=== PATIENT | female | born 2000 | race Caucasian/White ===

== ENCOUNTER 2023-02-12 21:35 | Emergency (ER) | payer OTHER, SELFPAY ==
--- NOTE | ~2023-02-12 | CT_ITS ---
EXAMINATION: CT brain wo con DATE: 02/13/2023 02:29 INDICATION: Head injury TECHNIQUE: Computed tomography (CT) of the head was performed without intravenous contrast. Sagittal and coronal reconstructions were performed. The mA was adjusted according to patient size. Iterative reconstruction technique was employed. The dose-length product was 605.33 mGy-cm. COMPARISON: None FINDINGS: No fracture. No acute intracranial hemorrhage, acute infarction or abnormal extra axial fluid collect ion. Ventricles are normal and symmetric. No mass/mass effect. The orbits, paranasal sinuses and mast oid air cells are normal. IMPRESSION: 1. Normal head CT. No fracture or acute intracranial process. Reviewed, dictated and finalized at location A.
[2023-02-12 21:38] VITALS: BP 138/84; PULSE 110; RESP 18; TEMP 36.6; O2SAT 99
[2023-02-13 02:07] VITALS: BP 144/109; PULSE 102; RESP 16; TEMP 36.6; O2SAT 98
[2023-02-13 02:08] VITALS: O2SAT 100
[2023-02-13 03:00] VITALS: BP 129/85; PULSE 101; RESP 19; O2SAT 98
--- NOTE | 2023-02-13 03:46 | ED.GENADULT ---
HPI - General Adult General Chief complaint: Head Injury Stated complaint: fell yesterday, headache and blurry vision Time Seen by Provider: 02/13/23 02:04 History of Present Illness HPI narrative: 22-year-old female presented the emergency department for evaluation after having a syncopal episode in the shower yesterday. Patient reports that she often does have syncopal episodes. Patient reports that she fell in the shower and did hit her head. Patient states he does have history of hypoglycemia. Patient states that she does have a headache at this time. Patient denies any other pain or injury. After the incident patient was able to work all day but then started developing a headache so after work she presented to the ED for evaluation. Related Data Home Medications Medication Instructions Recorded Confirmed desvenlafaxine succinate 100 mg 75 mg PO DAILY 05/16/19 tablet,extended release 24 hr (Pristiq) oxcarbazepine 300 mg tablet 300 mg PO BID 05/16/19 (Trileptal) metoclopramide HCl 10 mg tablet 10 mg PO 10/22/22 ziprasidone HCl 80 mg capsule 80 mg PO ONCE 10/22/22 levonorgestrel 21 mcg/24 hours (8 1 device intrauterine ONCE 12/15/22 yrs) 52 mg intrauterine device (Mirena) levothyroxine 25 mcg capsule 100 mcg PO DAILY 12/15/22 Allergies Allergy/AdvReac Type Severity Reaction Status Date / Time No Known Allergies Allergy Verified 12/15/22 14:21 Review of Systems Review of Systems: All systems reviewed & are unremarkable except as noted in HPI and below PMFSH Past Medical History Medical History Anxiety Bipolar disorder Encounter for removal and reinsertion of intrauterine contraceptive device Psychosis Surgical History Surgical History H/O gynecological procedure IUD insertiona Short frenulum of tongue Family History Family History Mother Thyroid cancer Social History Social History Smoking status: Never smoker Second hand tobacco smoke exposure: No Alcohol intake: never Substance use: never Substance use type: does not use Living arrangements: with family Occupation/Education: occupation Gender identity (if verbalized by the patient): Female Sexual Orientation (if Verbalized by the Patient): pansexual Exam Narrative: APPEARANCE: Well appearing, no pain, no distress, well-nourished. HEAD: normocephalic, atraumatic. EYES: PERRLA/EOMI, conjunctivae clear. NOSE: Normal no drainage EARS:TMS clear with good light reflex. THROAT: Pharynx clear, no exudate. NECK: Supple. No adenopathy, no masses. RESPIRATORY: Airway patent, respirations nonlabored. Clear to auscultation bilaterally, no rales, rhonchi, wheezing. CARDIOVASCULAR: Regular rate and rhythm without murmurs rubs or gallops. ABDOMINAL: Soft, nontender, nondistended, normal bowel sounds MUSCULOSKELETAL: Moves all extremities. Strength/ROM intact, No edema, No calf tenderness. NEURO: Alert. Cranial nerves II through XII intact. Grossly intact SKIN: Warm, dry. Normal Color Course Course Emergency Course: 22-year-old female presented ED for evaluation for headache after having a near syncopal episode in the shower. Head CT was negative. Patient was updated results of her work-up. Patient was encouraged of close follow-up with her primary care physician. All questions and concerns were Vital Signs Vital signs: Vital Signs Temperature 97.9 F 02/12/23 21:38 Pulse Rate 110 H 02/12/23 21:38 Respiratory Rate 18 02/12/23 21:38 Blood Pressure 138/84 02/12/23 21:38 Pulse Oximetry 99 02/12/23 21:38 Oxygen Delivery Room Air 02/12/23 21:38 Temperature 97.8 F 02/13/23 05:56 Pulse Rate 100 02/13/23 05:56 Respiratory Rate 16 02/13/23 05:56 Blood Pressure 114
[2023-02-13 03:52] VITALS: BP 123/79; PULSE 89; RESP 15; O2SAT 98
[2023-02-13 04:55] VITALS: BP 140/87; PULSE 102; RESP 16; O2SAT 100
[2023-02-13 05:56] VITALS: BP 114/75; PULSE 100; RESP 16; TEMP 36.6; O2SAT 100
== END 2023-02-13 05:57 | disposition home or self-care (01) ==
PROVIDERS: Emergency Provider Emergency Medicine; PCP Family Medicine
DX: S09.90XA Unspecified injury of head, initial encounter (principal); Z97.5 Presence of (intrauterine) contraceptive device; W18.2XXA Fall in (into) shower or empty bathtub, initial encounter; Y93.E1 Activity, personal bathing and showering
CPT/HCPCS: 70450; 99284

== ENCOUNTER 2023-07-06 15:07 | Emergency (ER) | payer OTHER, SELFPAY ==
--- NOTE | ~2023-07-06 | XR_ITS ---
XR chest 2V DATE: 07/06/2023 16:10 INDICATION: Chest pain, shortness of breath TECHNIQUE: PA and lateral views COMPARISON: None FINDINGS: Normal heart size. No hilar or mediastinal enlargement. No pulmonary infiltrate or consolid ation, pleural effusion or pulmonary vascular congestion or pneumothorax is detected. Included skelet al structures are unremarkable. IMPRESSION: No active cardiopulmonary disease Reviewed, dictated and finalized at location L. LE WMS CONSULTANT
[2023-07-06 15:09] VITALS: BP 139/104; PULSE 87; RESP 18; TEMP 36.7; O2SAT 98
--- NOTE | 2023-07-06 15:16 | ECG_ITS ---
Measurements Intervals [place] Rate: 92 P: 27 CO: 156 QRS: 19 QRSD: 82 T: 3 QT: 335 QTc: 415 Interpretive Statements SINUS RHYTHM NORMAL ECG NO PREVIOUS ECG AVAILABLE FOR COMPARISON Electronically Signed On 07-06-2023 16:33:02 DIRECTOR NETWORK DEVELOPMENT by Harley Lechuga D.O.
[2023-07-06 15:36] LABS: Basophils Percent Auto 0.3 % (0.2-1.2); Eosinophils Absolute Auto 0.1 K/mm3 (0-0.3); Eosinophils Percent Auto 1.1 % (0-4.4); Hematocrit 40.6 % (37.0-47.0); Immature Granulocyte Absolute 0.05 K/mm3 (0.00-0.031); Immature Granulocyte Percent A 0.6 % (0-0.5); Lymphocytes Absolute Auto 2.59 K/mm3 (0.9-3.2); Lymphocytes Percent Auto 32.5 % (18.3-44.2); Mean Corpuscular Hemoglobin 26.7 pg (26-34); Mean Corpuscular Volume 83.5 fl (80-100); Monocytes Absolute Auto 0.5 K/mm3 (0.1-0.6); Monocytes Percent Auto 6.5 % (2.6-8.5); Neutrophils Absolute Auto 4.7 K/mm3 (1.3-6.7); Platelet Count Result 300 k/mm3 (150-375); Red Blood Count 4.86 M/mm3 (4.2-5.4); Red Cell Distribution Width 13.1 % (11.5-14.5)
[2023-07-06 15:46] LABS: Alanine Aminotransferase 36 U/L (6-35); Albumin Level 3.9 g/dL (3.5-5.1); Alkaline Phosphatase 77 U/L (38-126); Anion Gap 9 mmol/L (8-16); Aspartate Amino Transferase 28 U/L (14-36); Bilirubin,Total 0.4 mg/dL (0.2-1.3); Blood Urea Nitrogen 13 mg/dL (7-17); Calcium 9.1 mg/dL (8.4-10.2); Carbon Dioxide 22 mmol/L (22-30); Chloride 110 mmol/L (98-107); Estimated CRCL calculation 158 ml/min; Estimated Glomerular Filt Rate > 60; Glucose 84 mg/dL (65-110); Lipase 78 U/L (23-300); Potassium 4.2 mmol/L (3.4-5.0); Sodium 141 mmol/L (137-145)
[2023-07-06 15:49] LABS: Prothrombin Time 13.3 Seconds (11.1-14.7)
[2023-07-06 15:58] LABS: Troponin I < 0.012 ng/mL (0.000-0.034)
--- NOTE | 2023-07-06 17:31 | ED.CHESTPAIN ---
HPI - Chest Pain General Chief Complaint: Chest Pain Stated Complaint: intermittent chest discomfort Time Seen by Provider: 07/06/23 17:30 History of Present Illness HPI narrative: Patient is a 22-year-old female who presents to the emergency department this afternoon complaining of chest pain that started while she was at work. Patient states that the chest pain is substernal and radiates across the rib cage. She admits to 1 similar episode in the where she presented to an emergency department and was evaluated and discharged home with outpatient follow-up. Patient states that she was not provided with a Cardiology referral as her insurance requires her to have a referral from her primary care physician and she never followed up on that. Patient denies any additional symptoms including shortness of breath, nausea, vomiting, abdominal pain, dysuria, hematuria, constipation, diarrhea, melena, hematochezia, fevers or chills. Patient also denies any headaches, dizziness, lightheadedness, blurry visions, focal weakness, numbness and or tingling. There are no other modifying, alleviating, or precipitating factors at this time. Related Data Home Medications Medication Instructions Recorded Confirmed desvenlafaxine succinate 100 mg 75 mg PO DAILY 05/16/19 tablet,extended release 24 hr (Pristiq) oxcarbazepine 300 mg tablet 300 mg PO BID 05/16/19 (Trileptal) metoclopramide HCl 10 mg tablet 10 mg PO 10/22/22 ziprasidone HCl 80 mg capsule 80 mg PO ONCE 10/22/22 levonorgestrel 21 mcg/24 hours (8 1 device intrauterine ONCE 12/15/22 yrs) 52 mg intrauterine device (Mirena) levothyroxine 25 mcg capsule 100 mcg PO DAILY 12/15/22 Allergies Allergy/AdvReac Type Severity Reaction Status Date / Time No Known Allergies Allergy Verified 07/06/23 15:14 Review of Systems Review of Systems: All systems are reviewed and are negative unless stated otherwise in the HPI. PMFSH Past Medical History Medical History Anxiety Bipolar disorder Encounter for removal and reinsertion of intrauterine contraceptive device Psychosis Surgical History Surgical History H/O gynecological procedure IUD insertiona Short frenulum of tongue Family History Family History Mother Thyroid cancer Social History Social History Smoking status: Never smoker Second hand tobacco smoke exposure: No Alcohol intake: never Substance use: never Substance use type: does not use Living arrangements: with family Occupation/Education: occupation Gender identity (if verbalized by the patient): Female Sexual Orientation (if Verbalized by the Patient): pansexual Exam Narrative: General: Alert, awake, afebrile, in no acute distress. HEENT: PERRL, no rhinorrhea, no post nasal drip, oropharynx clear. Neck: Trachea midline, no JVD, no lymphadenopathy. Cardiovascular: Regular rate and rhythm, no murmurs, rubs or gallops, no peripheral edema. Respiratory: Clear to auscultation bilaterally, no tachypnea, no wheezing, no rhonchi, no rubs, no respiratory distress. Abdomen: Soft, nontender, nondistended, no rebound, no guarding, no peritoneal signs. Musculoskeletal: No joint swelling or deformity, normal muscle tone. Skin: No rashes or petechia, no signs of infection. Psychiatric: Alert and oriented, normal behavior and judgment for situation. Neurological: Alert and oriented to person, place, and time. Follows all commands. No focal deficits, speech is clear and fluent. Course Vital Signs Vital signs: Vital Signs Temperature 98.1 F 07/06/23 15:09 Pulse Rate 87 07/06/23 15:09 Respiratory Rate 18 07/06/23 15:09 Blood Pressure 139/104 H 07/06/23 15:09 Pulse Oximetry 98 07/06/23 15:09 Oxygen Deli
--- NOTE | 2023-07-06 18:11 | ECG_ITS ---
Measurements Intervals [place] Rate: 89 P: 11 MO: 155 QRS: 42 QRSD: 82 T: 5 QT: 352 QTc: 430 Interpretive Statements SINUS RHYTHM BORDERLINE ST-T WAVE ABNORMALITY- INFERIOR LEADS BASELINE ARTIFACT- II, III, AVR, AVL, AVF BORDERLINE ECG COMPARED TO ECG 07/06/2023 15:22:01 NO SIGNIFICANT CHANGES Electronically Signed On 07-06-2023 20:40:30 OUTPATIENT SCHEDULER by Harley Lechuga D.O.
[2023-07-06 18:34] LABS: Troponin I < 0.012 ng/mL (0.000-0.034)
[2023-07-06 18:51] VITALS: BP 142/98; PULSE 96; RESP 22; TEMP 36.4; O2SAT 97
[2023-07-06 18:52] LABS: Glucose Point of Care 84 mg/dl (65-105)
== END 2023-07-06 18:52 | disposition home or self-care (01) ==
PROVIDERS: Emergency Medicine; Emergency Provider Emergency Medicine; PCP Family Medicine
DX: R07.9 Chest pain, unspecified (principal)
CPT/HCPCS: 36415; 71046; 80053; 82948; 83690; 84484; 85025; 85610; 85730; 93005; 99284

== ENCOUNTER 2024-12-05 15:44 | Emergency (ER) | payer OTHER, SELFPAY ==
--- NOTE | ~2024-12-05 | CT_ITS ---
CT brain wo con Ordering provider: Faith Montaño PA-C History: 23 years Female with . headache, hypertension . Comparison: None. Technique: CT of the head without contrast. Radiation reduction technique utilized.The dose-length product was 605.33 mGy-cm. FINDINGS: BRAIN PARENCHYMA AND CSF SPACES: No midline shift, mass effect or hemorrhage. The brain parenchyma a nd CSF spaces are otherwise normal. VISUALIZED PARANASAL SINUSES: Well aerated. MASTOIDS: Well aerated. BONES: The bones appear intact. SOFT TISSUES: Visualized nasopharynx is normal. Superficial soft tissues are normal. IMPRESSION: No acute intracranial findings. Reviewed, dictated and finalized at location A.
[2024-12-05 15:47] VITALS: BP 168/92; PULSE 86; RESP 16; TEMP 36.6; O2SAT 99
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
--- NOTE | 2024-12-05 17:13 | ED.HA ---
HPI - Headache General Chief Complaint: Headache Stated Complaint: nosebleed, rash Time Seen by Provider: 12/05/24 17:07 Source: patient Mode of arrival: ambulatory Limitations: no limitations History of Present Illness HPI Narrative: This is a 23-year-old female that presents to the emergency department for headache. Reports last night and this morning she had some leads, which are unusual for her. This morning she also woke up with a headache. Reports associated nausea vomiting. She does endorse history of migraines. She has not taken any medication for her headache today. She also noted a rash on her face. Denies fevers, vision changes, numbness, weakness. Related Data Home Medications ?Medication ?Instructions ?Recorded ?Confirmed ?Last Taken ?Type ziprasidone HCl 80 mg capsule 80 mg PO ONCE 10/22/22 01/25/24 Unknown History levonorgestrel (Mirena) 1 device intrauterine ONCE 12/15/22 01/25/24 Unknown History Allergies Allergy/AdvReac Type Severity Reaction Status Date / Time No Known Allergies Allergy Verified 01/25/24 15:20 Review of Systems Review of Systems: CONSTITUTIONAL: Denies fever EYES: Denies visual changes GASTROINTESTINAL: Reports nausea, vomiting SKIN: Reports rash All systems reviewed & are unremarkable except as noted in HPI and below PMFSH Past Medical History Medical History Anxiety Bipolar disorder Encounter for removal and reinsertion of intrauterine contraceptive device Psychosis Surgical History Surgical History H/O gynecological procedure IUD insertiona Short frenulum of tongue Family History Family History Mother Thyroid cancer Social History Social History Smoking status: Never smoker Second hand tobacco smoke exposure: No Alcohol intake: never Substance use: never Substance use type: does not use Living arrangements: with family Occupation/Education: occupation Gender identity (if verbalized by the patient): Female Sexual Orientation (if Verbalized by the Patient): pansexual Exam Narrative: GENERAL: Well-appearing, well-nourished, and in no acute distress. HEAD: Normocephalic, atraumatic. EYES: PERRLA and EOMI. ENT: Nares clear, no rhinorrhea or epistaxis. Mucous membranes moist. Oropharynx without tonsillar hypertrophy exudate or other lesions. Bilateral TMs pearly gallegos non-bulging NECK: Supple. No adenopathy or masses. Normal range of motion CHEST: Clear to auscultation. No respiratory distress. No wheezes rales or rhonchi HEART: Regular rate and rhythm. No murmur heard. Normal peripheral pulses. ABDOMEN: Soft, nontender, nondistended, normal active bowel sounds. EXTREMITIES: Normal range of motion. No edema. Strength equal in bilateral upper and lower extremities (5/5) SKIN: Warm, dry. Petechial rash on the face NEURO: No focal deficits. Alert and oriented x3. Cranial nerves 2-12 grossly intact. Normal gait PSYCH: Normal mood and affect Course Course Emergency Course: patient updated on her workup. Reports improvement with migraine cocktail. Resting comfortably Vital Signs Vital signs: Vital Signs Temperature 97.9 F 12/05/24 15:47 Pulse Rate 86 12/05/24 15:47 Respiratory Rate 16 12/05/24 15:47 Blood Pressure 168/92 H 12/05/24 15:47 Pulse Oximetry 99 12/05/24 15:47 Oxygen Delivery Room Air 12/05/24 15:47 Temperature 97.9 F 12/05/24 15:47 Pulse Rate 86 12/05/24 15:47 Respiratory Rate 16 12/05/24 15:47 Blood Pressure 168/92 H 12/05/24 15:47 Pulse Oximetry 99 12/05/24 15:47 Oxygen Delivery Room Air 12/05/24 15:47 MDM - Headache MDM Narrative Medical decision making narrative: Patient presents to the ER for nosebleeds ongoing intermittently since last night. Reporting a headache today, history of migraines. Also reporting a petechial rash on her face. Patient is afebrile and nontoxic appearing. She is neurologically intact. Blood pressure elevated upon arrival, this normalized with management of her pain. CBC and metabolic panel without concerning findings. Urine without evidence of infection. test is negative. TSH is normal. CT brain without acute findings. Patient updated on her workup. Reports improvement with migraine cocktail. Resting comfortably. Instructed to have close follow-up with primary provider for further evaluation. She was given warnings to return to the ER Differential Diagnosis Differential diagnosis: Likely migraine, tension headache, subarachnoid hemorrhage, sinusitis and other (nosebleed, viral syndrome, thrombocytopenia) Lab Data Attestation: I reviewed the patient's lab results. 12/05/24 17:24 12/05/24 17:24 Labs: Lab Results 12/05/24 12/05/24 12/05/24 Range/Units 17:24 17:49 17:52 WBC 8.0 (4.5-10.0) K/mm3 RBC 5.11 (4.2-5.4) M/mm3 Hgb 13.8 (12.0-15.0) g/dL Hct 42.0 (37.0-47.0) % MCV 82.2 (80-100) fl MCH 27.0 (26-34) pg MCHC 32.9 (32-36) g/dl RDW 13.8 (11.5-14.5) % Plt Count 274 (150-375) k/mm3 MPV 10.8 H (7.4-10.4) fl Immature Gran % (Auto) 0.4 (0-0.5) % Neut % (Auto) 67.3 (45.5-73.1) % Lymph % (Auto) 25.8 (18.3-44.2) % Antelope % (Auto) 5.3 (2.6-8.5) % Eos % (Auto) 0.8 (0-4.4) % Baso % (Auto) 0.4 (0.2-1.2) % Lymph # (Auto) 2.05 (0.9-3.2) K/mm3 Antelope # (Auto) 0.4 (0.1-0.6) K/mm3 Eos # (Auto) 0.1 (0-0.3) K/mm3 Baso # (Auto) 0.0 (0.0-0.1) K/mm3 Abs Immat Gran (auto) 0.03 (0.00-0.031) K/mm3 Absolute Neuts (auto) 5.4 (1.3-6.7) K/mm3 Absolute Nucleated RBC 0.000 (0.0-0.012) K/mm3 Nucleated RBC % 0.0 (0.0-0.2) % PT 13.9 (11.1-14.7) Seconds INR 1.1 APTT 34.5 (22.3-36.8) Seconds Sodium 141 (137-145) mmol/L Potassium 4.5 (3.4-5.0) mmol/L Chloride 109 H (98-107) mmol/L Carbon Dioxide 24 (22-30) mmol/L Anion Gap 8 (4-12) mmol/L BUN 14 (7-17) mg/dL Creatinine 0.72 (0.7-1.0) mg/dL Estim Creat Clear Calc 149 ml/min Estimated GFR > 60 (59 - ) Glucose 102 (65-110) mg/dL Calcium 9.4 (8.4-10.2) mg/dL Total Bilirubin 0.5 (0.2-1.3) mg/dL AST 27 (14-36) U/L ALT 31 (6-35) U/L Alkaline Phosphatase 82 (38-126) U/L Total Protein 8.1 (6.3-8.2) g/dL Albumin 4.1 (3.5-5.1) g/dL TSH (Reflex) 3.700 (0.465-4.68) uIU/mL Urine Color Yellow (Yellow) Urine Appearance Clear (Clear) Urine pH 5.5 (5.0-9.0) Ur Specific [place] 1.022 (1.001-1.035) Urine Protein Negative (Negative) mg/dL Urine Glucose (UA) Negative (Negative) mg/dL Urine Ketones Negative (Negative) mg/dL Ur Blood (Man) 1+ H (Negative) Urine Nitrate Negative (Negative) Urine Bilirubin Negative (Negative) Urine Urobilinogen 0.2 (<2.0) mg/dL Leukocyte Esterase Rfl Trace H (Negative) MONIKA/UL Urine RBC 0-2 (0-2) /hpf Urine WBC 0-5 (0-3) /hpf Ur Squamous Epith Cells Few (Few) /hpf Urine Bacteria 2+ H /hpf Urine Casts 0-2 POC Urine HCG, Qual (Negative) 12/05/24 Range/Units 17:54 WBC (4.5-10.0) K/mm3 RBC (4.2-5.4) M/mm3 Hgb (12.0-15.0) g/dL Hct (37.0-47.0) % MCV (80-100) fl MCH (26-34) pg MCHC (32-36) g/dl RDW (11.5-14.5) % Plt Count (150-375) k/mm3 MPV (7.4-10.4) fl Immature Gran % (Auto) (0-0.5) % Neut % (Auto) (45.5-73.1) % Lymph % (Auto) (18.3-44.2) % Antelope % (Auto) (2.6-8.5) % Eos % (Auto) (0-4.4) % Baso % (Auto) (0.2-1.2) % Lymph # (Auto) (0.9-3.2) K/mm3 Antelope # (Auto) (0.1-0.6) K/mm3 Eos # (Auto) (0-0.3) K/mm3 Baso # (Auto) (0.0-0.1) K/mm3 Abs Immat Gran (auto) (0.00-0.031) K/mm3 Absolute Neuts (auto) (1.3-6.7) K/mm3 Absolute Nucleated RBC (0.0-0.012) K/mm3 Nucleated RBC % (0.0-0.2) % PT (11.1-14.7) Seconds INR APTT (22.3-36.8) Seconds Sodium (137-145) mmol/L Potassium (3.4-5.0) mmol/L Chloride (98-107) mmol/L Carbon Dioxide (22-30) mmol/L Anion Gap (4-12) mmol/L BUN (7-17) mg/dL Creatinine (0.7-1.0) mg/dL Estim Creat Clear Calc ml/min Estimated GFR (59 - ) Glucose (65-110) mg/dL Calcium (8.4-10.2) mg/dL Total Bilirubin (0.2-1.3) mg/dL AST (14-36) U/L ALT (6-35) U/L Alkaline Phosphatase (38-126) U/L Total Protein (6.3-8.2) g/dL Albumin (3.5-5.1) g/dL TSH (Reflex) (0.465-4.68) uIU/mL Urine Color (Yellow) Urine Appearance (Clear) Urine pH (5.0-9.0) Ur Specific [place] (1.001-1.035) Urine Protein (Negative) mg/dL Urine Glucose (UA) (Negative) mg/dL Urine Ketones (Negative) mg/dL Ur Blood (Man) (Negative) Urine Nitrate (Negative) Urine Bilirubin (Negative) Urine Urobilinogen (<2.0) mg/dL Leukocyte Esterase Rfl (Negative) MONIKA/UL Urine RBC (0-2) /hpf Urine WBC (0-3) /hpf Ur Squamous Epith Cells (Few) /hpf Urine Bacteria /hpf Urine Casts POC Urine HCG, Qual Negative (Negative) Imaging Data Radiologist's impression: ITS Impressions Head CT 12/05/24 17:23 IMPRESSION: No acute intracranial findings. Critical Care Time Critical Care Time Critical Care Time: No Discharge Plan Discharge Clinical Impression: Petechial rash, Epistaxis Headache Qualifiers: Headache type: unspecified Headache chronicity pattern: acute headache Intractability: not intractable Qualified Code(s): R51.9 - Headache, unspecified Patient Disposition: Home Condition: Improved Instructions: Nosebleed (ED), Acute Headache (ED), Acute Rash (ED) Additional Instructions: Return to the emergency department if you experience fever, chest pain, shortness of breath, abdominal pain with nausea and vomiting, weakness, numbness, or any other symptoms that are concerning to you. Follow up with primary care doctor Patient Language: Surinamese Prescriptions: No Action ziprasidone HCl 80 mg capsule 80 mg PO ONCE Rx Instructions: give with food (meal/snack) metronidazole 500 mg tablet 500 mg PO Q12H Qty: 14 0RF Mirena 21 mcg/24 hours (8 yrs) 52 mg intrauterine device 1 device intrauterine ONCE Rx Instructions: as a single dose Follow-up/Referrals: Yvon Nevarez MD [Physician] - UNKNOWN,DOCTOR [Primary Care Provider] -
[2024-12-05 17:30] LABS: Basophils Percent Auto 0.4 % (0.2-1.2); Eosinophils Absolute Auto 0.1 K/mm3 (0-0.3); Eosinophils Percent Auto 0.8 % (0-4.4); Hemoglobin 13.8 g/dL (12.0-15.0); Immature Granulocyte Absolute 0.03 K/mm3 (0.00-0.031); Immature Granulocyte Percent A 0.4 % (0-0.5); Lymphocytes Absolute Auto 2.05 K/mm3 (0.9-3.2); Lymphocytes Percent Auto 25.8 % (18.3-44.2); Mean Corpuscular HGB Conc 32.9 g/dl (32-36); Mean Corpuscular Volume 82.2 fl (80-100); Mean Platelet Volume 10.8 fl (7.4-10.4); Monocytes Absolute Auto 0.4 K/mm3 (0.1-0.6); Monocytes Percent Auto 5.3 % (2.6-8.5); Neutrophils Absolute Auto 5.4 K/mm3 (1.3-6.7); Neutrophils Percent Auto 67.3 % (45.5-73.1); Platelet Count Result 274 k/mm3 (150-375); Red Blood Count 5.11 M/mm3 (4.2-5.4); Red Cell Distribution Width 13.8 % (11.5-14.5)
[2024-12-05 17:40] LABS: Alanine Aminotransferase 31 U/L (6-35); Albumin Level 4.1 g/dL (3.5-5.1); Alkaline Phosphatase 82 U/L (38-126); Anion Gap 8 mmol/L (4-12); Aspartate Amino Transferase 27 U/L (14-36); Bilirubin,Total 0.5 mg/dL (0.2-1.3); Blood Urea Nitrogen 14 mg/dL (7-17); Calcium 9.4 mg/dL (8.4-10.2); Carbon Dioxide 24 mmol/L (22-30); Chloride 109 mmol/L (98-107); Estimated CRCL calculation 149 ml/min; Estimated Glomerular Filt Rate > 60; Glucose 102 mg/dL (65-110); Potassium 4.5 mmol/L (3.4-5.0); Sodium 141 mmol/L (137-145); Total Protein 8.1 g/dL (6.3-8.2)
--- OUTSIDE RECORDS SUMMARY | 2024-12-05 17:42 | XMS_ITS | Clinical Summary ---
Author Organization [facility] Address [address] [place] [address] Care Team Providers Care Appliances Sample Maker Name Role Phone Unavailable Primary Care Provider Unavailabl e Source Comments [facility],non-owned Affiliates and Associated Physician Practices is amultiple site organization consisting of ambulatory clinics and hospital sitesin [place], [place], [place] and [place]. This disclosure is being madepursuant to the Care Everywhere program and may not contain all information available regarding this patient. 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
--- OUTSIDE RECORDS SUMMARY | 2024-12-05 17:42 | XMS_ITS | Referral Summary ---
Author Organization [address] Address [address] [place] [phone] Care Team Providers Care Slackman Name Role Phone Jordan Conteh MD Primary Care Provider Sd Ledbetter HOUSEHOLD REFRIGERATOR MECHANIC Unavailable [phone] Allergies No known active allergies Medications ziprasidone (GEODON) 80 mg capsule TAKE 1 CAPSULE BY MOUTH IN THE EVENING 2 Active lamoTRIgine (LaMICtal) 25 mg tablet 2 Active MELATONIN ORAL Take by mouth A ctive metoclopramide (Reglan) 10 mg tabletIndication s:Chronic migraine without aura without status migrainosus, not intractable Take 1 tablet (10 mg total) by mouth 3 (three) times a day as needed (nausea) 30 tablet 2 Active Additional Information Patient not taking.Reported on 03/22/2023 topiramate (TOPAMAX) 25 mg tabletIndication s:Chronic migraine without aura without status migrainosus, not intractable Take 2 tablets (50 mg total) by mouth 2 (two) times a day 180 tablet 4 2 Active Additional Information Patient not taking.Reported on 03/22/2023 levothyroxine (SYNTHROID) 125 mcg tabletIndication s: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 No discrete solid nodules noted Palpitations 03/19/2023 Overview (03/19/2023): EKG unremarkable save for tachycardia Assessment & Plan (03/19/2023 11:05 PM CDT): EKG doesn't show any arrhythmia or extra beats, but it is rapid. If the thyroid is elevated, it could be causative. 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 If one or more pills are missing in a week, they can be taken all together at once, making sure at the end of the week, 7 tabs have been taken. Chronic migraine without aur a without status migrainosus, not intractable 05/13/2022 Encounter for general adult medical examination with abnormal findings 01/01/2022 Assessment & Plan (01/03/2022 7:56 PM CDT): A(n) initial well visit to establish care has been performed today. Luzma Billings is up to date on screening tests. She is in need of None- no screening indicated at this time. She is not up to date on needed preventative vaccinations; She is in need of Tdap/Td, HPV and Varicella. Will await shot record Bipolar depression 01/01/2022 Immunizations Immunization Administration Dates Next Due DTaP 05/02/2002,03/29/2002 Hep B / HiB 05/02/2002,03/29/2002 IPV 05/02/2002,03/29/2002 Influenza, Quadrivalent, Spl it, Preservative Free, Intramuscular 04/06/2019 Influenza, Trivalent, Preser vative Free, Intramuscular 04/01/2016 Influenza, Unspecified 06/21/2022(Deferr ed: Patient Refused),04/07/2022(Deferred: Patient Refused),06/21/2021(Deferred: Patient Refused) Varicella 03/20/2019 Social History Tobacco Use Types Packs/Day Years Used Date Smoking Tobacco: Never AUDIT-C Answer Date Recorded Q1: How often do you have a drink containing alcohol? Monthly or less 03/17/2023 Q2: How many drinks containi ng alcohol do you have on a typical day when you are drinking? Patient does not drink Q3: How often do you have si x or more drinks on one occasion? Never 03/17/2023 PHQ-2 Answer Date Recorded PHQ-2 Total Score (If total score is 3 or more points, staff should administer the PHQ-9) 0 03/17/2023 Personal Safety Answer Date Recorded Getting School Help Needed Not on file 06/07 Comments No Sex and Gender Information Value Date Recorded Sex Assigned at Not on file Legal Sex Female 11:40 AM CDT Gender Identity Not on file Sexual Orientation Not on file Last Filed Vital Signs Vital Sign Reading Time Taken Comments Blood Pressure 126/70 03/22/2023 10:39 AM CDT Pulse 110 03/22/2023 10:39 AM CDT Temperature 36.1 C (97 F) 03/17/2023 1:38 PM CDT Respiratory Rate 18 03/22/2023 10:3 9 AM CDT Oxygen Saturation 99% 03/17/2023 1:38 PM CDT Inhaled Oxygen Concentration - - Weight 137.9 kg (304 lb 1.6 oz) 023 10:39 AM CDT Height 167.6 cm (5' 5.98) 03/22/2023 1 0:39 AM CDT Body Mass Index 49.11 03/22/2023 10:39 AM CDT Plan of Treatment Not on file Insurance [facility] Care Teams Slackman Relationship Specialty Start Date End Date Jordan Conteh MD [address] [place] [address] PCP - General Family Medicine 12/10/21 [place] [id number] [facility] [address] [place] [address] Nurse Practitioner Behavioral Health 01/01/22
--- OUTSIDE RECORDS SUMMARY | 2024-12-05 17:42 | XMS_ITS | Clinical Summary ---
Author Organization [facility] Address [address] [place] [id number] Care Team Providers Care Clean Room Technician Name Role Phone Renay Larkin VTC TECHNICIAN Primary Care Provider [phone] Allergies No known active allergies Medications lurasidone (LATUDA) 40 MG Tab tabletIndication s:Bipolar depression ([facility]) Take 1 tablet (40 mg total) by mouth daily. 30 tablet 1 06/22/2024 Active levothyroxine (SYNTHROID) 150 MCG tabletIndication s:Hypothyroidism due to Nik thyroiditis Take 1 tablet (150 mcg total) by mouth every morning. 30 tablet 1 06/23/2024 Active vitamin D2, ergocalciferol, (DRISDOL) 1.25 mg capsuleIndicatio ns:Vitamin D deficiency Take 1 capsule (50,000 Units total) by mouth every 7 days. 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 ([facility]) 05/25/2024 Palpitations 05/25/2024 Other form of dyspnea 05/25/2024 Vitamin D deficiency 05/25/2024 IUD (intrauterine device) in place 05/25/2024 Chronic pain of right knee 05/25/2024 Class 3 severe obesity witho ut serious comorbidity with body mass index (BMI) of 45.0 to 49.9 in adult, unspecified obesity type 05/25/2024 Encounters Date Type Department Care Team Description 09/07/2024 2:00 PM CDT Office Visit [facility] [place] [address] [place] [address] Renay Larkin, VTC TECHNICIAN Medication Check 09/07/2024 - 09/07/2024 11:59 PM CDT Hospital Encounter [facility] [address] [place] [address] Renay Larkin, VTC TECHNICIAN Discharge Disposition: Home or Self Care (Routine Discharge) 09/07/2024 Travel from Last 3 Months Immunizations Immunization Administration Dates Next Due Dtap (Acel-Immune) 05/02/2002,03/29/2002 Flublok (RIV3, Trivalent, 0.5mL) 03/31/2024 Hib-Hepatitis B (Comvax) 05/02/2002,03/29/2002 Influenza (Generic) 04/01/2016 Influenza Adult (Generic) 04/06/2019 Polio IPV (Ipol) 05/02/2002,03/29/2002 Tdap (Adacel) 09/07/2024 Varicella (Varivax) 03/20/2019 Family History Medical History Relation Comments Arthritis Maternal Grandmother Diabetes Maternal Grandmother Depression Mother Mental Health Mother Thyroid cancer Mother Relation Status Comments Maternal Grandmother Mother Social History Tobacco Use Types Packs/Day Years Used Date Smoking Tobacco: Never Passive Smoke Exposure: Never Smokeless Tobacco: Never Tobacco Cessation:Counseling Given: No Alcohol Use Standard Drinks/Week Comments Not Currently 0 (1 standard drink = 0.6 oz pur e alcohol) More of a once a month maybe PHQ-2 Answer Date Recorded Patient Health Questionnaire-2 Score 1 09/07/2024 Comments No Sex and Gender Information Value Date Recorded Sex Assigned at Not on file Legal Sex Female 2:16 PM TRADING MANAGER Gender Identity Not on file Sexual Orientation Not on file Last Filed Vital Signs Vital Sign Reading Time Taken Comments Blood Pressure 133/87 09/07/2024 1:57 PM CDT Pulse 93 09/07/2024 1:57 PM CDT Temperature 36.4 C (97.5 F) 06/22/2024 1:56 PM TRADING MANAGER Respiratory Rate 18 09/07/2024 1:57 PM CDT Oxygen Saturation 96% 09/07/2024 1:57 PM CDT Inhaled Oxygen Concentration - - Weight 137.6 kg (303 lb 6.4 oz) 09/07/2024 1:57 PM CDT Height 167.6 cm (5' 6) 09/07/2024 1:57 PM CDT Body Mass Index 48.97 09/07/2024 1:57 PM CDT Plan of Treatment Health Maintenance Due Date Last Done Comments Cervical Cancer Screening Pap Smear (Age 21 to 29) Every 3 Years 2001 Cervical Cancer Screening 2001 Hepatitis B Vaccines (3 of 3 - 3-dose series) 07/19/2002 05/02/2002, 03/29/2002 Annual Physical 2004 HPV Vaccines (1 - 3-dose series) 2016 Chlamydia Screening Females ages 16-24 2017 Meningococcal B Vaccine (1 of 2 - Standard) 2017 Hepatitis C 12/20/2019 DTaP, Tdap and Td Vaccines (4 - Td or Tdap) 09/07/2034 09/07/2024, 05/02/2002, 03/29/2002 COVID-19 Vaccine Completed 03/31/2024, , 10/04/2020, Additional history exists PHQ-2 (Physician [place]) Completed 09/07/2024 Meningococcal Vaccine Aged Out No doni harlan eligible based on patient's age to complete this topic Pneumococcal Vaccine: Pediatrics (0 to 5 Years) and At-Risk Patients (6 to 49 Years) Aged Out No longer eligible based on patient's age to complete this topic RSV Immunizations Under 20 Months Aged Out No longer eligible based on patient's age to complete this topic Procedures Procedure Name Priority Date/Time Associated Diagnosis Comments THYROID STIM HORMONE TSH Routine 09/07/2024 2:55 PM CDT Hypothyroidism due to Nik thyroiditis THYROXINE, FREE (FT4) Routine 09/07/2024 2:55 PM CDT Hypothyroidism due to Nik thyroiditis FREE T3 Routine 09/07/2024 2:55 PM CDT Hypothyroidism due to Nik thyroiditis CBC W/DIFF AUTOMATED Routine 09/07/2024 2:55 PM CDT Encounter to establish care VITAMIN D, 25 OH Routine 09/07/2024 2:55 PM CDT Vitamin D deficiency from Last 3 Months Results * FREE T3 (09/07/2024 2:55 PM CDT) FREE T3 3.3 2.2 - 3.9 PG/ML 09/08/2024 6:11 PM CDT [facility] 09/07/2024 2:55 PM CDT Renay Larkin NP LABORATORY Final Resul t [facility] [address] [place] [address], [phone] * (ABNORMAL) CBC W/DIFF AUTOMATED (09/07/2024 2:55 PM CDT) WBC 7.43 4.00 - 10.80 x10'3/uL 09/07/2024 7:42 PM CDT [facility] RBC 5.05 4.10 - 5.40 x10'6/uL 09/07/2024 7:42 PM CDT [facility] HGB 13.7 12.0 - 16.0 G/DL 09/07/2024 7:42 PM CDT [facility] HCT 41.3 36.0 - 47.0 % 09/07/2024 7:42 PM CDT [facility] MCV 81.8 78.0 - 100.0 FL 09/07/2024 7:42 PM CDT [facility] MCH 27.1 27.0 - 31.0 PG 09/07/2024 7:42 PM CDT [facility] MCHC 33.2 33.0 - 36.0 G/DL 09/07/2024 7:42 PM CDT [facility] RDW 13.0 11.5 - 14.5 % 09/07/2024 7:42 PM CDT [facility] PLT 283 150 - 350 x10'3/uL 09/07/2024 7:42 PM CDT [facility] MPV 11.7(H) 7.4 - 10.4 FL 09/07/2024 7:42 PM CDT [facility] DIFFERENTIAL TYPE AUTOMATED DIFFERENTIAL 09/07/2024 7:42 PM CDT [facility] NEUTROPHILS % 58.3 % 09/07/2024 7:42 PM CDT [facility] LYMPHOCYTES % 32.3 % 09/07/2024 7:42 PM CDT [facility] MONOCYTES % 6.9 % 09/07/2024 7:42 PM CDT [facility] EOSINOPHILS % 1.6 % 09/07/2024 7:42 PM CDT [facility] BASOPHILS % 0.8 % 09/07/2024 7:42 PM CDT [facility] IMMATURE GRANS % 0.1 % 09/07/2024 7:42 PM CDT [facility] ABS. NEUTROPHILS 4.33 1.60 - 8.30 x10'3/uL 09/07/2024 7:42 PM CDT [facility] ABS. LYMPHOCYTES 2.40 0.80 - 4.70 x10'3/uL 09/07/2024 7:42 PM CDT [facility] ABS. MONOCYTES 0.51 0.00 - 1.50 x10'3/uL 09/07/2024 7:42 PM CDT [facility] ABS. EOSINOPHILS 0.12 0.00 - 0.40 x10'3/uL 09/07/2024 7:42 PM [address] [facility] ABS. BASOPHILS 0.06 0.00 - 0.20 x10'3/uL 09/07/2024 7:[address] PM [address] [facility] ABS. IMMATURE GRANULOCYTES 0.01 0.00 - 0.03 x10'3/uL 09/07/2024 7:[address] [facility] 09/07/2024 2:55 PM CDT Renay Larkin NP LABORATORY Final Resul t Performing Organization Address City/[facility]/ZIP Co de Phone Number [address] [address], [place] [phone] * THYROXINE, FREE (FT4) (09/07/2024 2:55 PM CDT) FREE T4 0.97 0.76 - 1.46 NG/DL 09/08/2024 6:03 PM CDT [facility] 09/07/2024 2:55 PM CDT Renay Larkin NP LABORATORY Final Resul t Performing Organization Address City/[facility]/ZIP Co de Phone Number [facility] [address] [place] [address], [place] [phone] * (ABNORMAL) THYROID STIM HORMONE TSH (09/07/2024 2:55 PM CDT) TSH 4.383(H) 0.358 - 3.740 uIU/ML 09/07/2024 8:[address] PM [address] [facility] 09/07/2024 2:55 PM CDT us Renay Larkin NP LABORATORY Final Resul t Performing Organization Address City/[facility]/ZIP Co de Phone Number [place] [address] [place] [address], * (ABNORMAL) VITAMIN D 25 OH (09/07/2024 2:55 PM CDT) VITAMIN D 25 HYDROXY TOTAL S/P/B 16.1(L) 30 - 100 NG/ML 09/07/2024 8:05 PM CDT [facility] Comment: DEFICIENT <20 INSUFFICIENT 20-30 SUFFICIENT 30-100 09/07/2024 2:55 PM CDT Renay Larkin NP LABORATORY Final Resul t -[facility] [address] [place] [address], from Last [address] [place] [address] [place] [address] Care Teams Clean Room Technician Relationship Specialty Start Date End Date Renay Larkin, ARTEM [address] [place] [address] PCP - General NURSE PRACTITIONER 05/11/24
--- OUTSIDE RECORDS SUMMARY | 2024-12-05 17:42 | XMS_ITS | Clinical Summary ---
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 Family History Medical History Relation Name Comments No Known Problems Father Arthritis Maternal Grandfather Diabetes Maternal Grandmother Thyroid cancer Mother No Known Problems Paternal Grandfather No Known Problems Paternal Grandmother Relation Name Status Comments Father Other Maternal Grandfather Alive Maternal Grandmother Alive Mother Alive Paternal Grandfather Paternal Grandmother Social History Tobacco Use Types [...] on file Sexual Orientation Not on file Obstetrics History Last Filed Vital Signs Vital Sign Reading [...] 03/22/2023 10:39 AM CDT Plan of Treatment Health Maintenance Due Date Last Done Comments Hepatitis C Screening 2001 DTaP/Tdap/Td Vaccine (3 - Tdap) 2012 05/02/2002, 03/29/2002 HPV Vaccines (1 - 3-dose series) 2016 Meningococcal B Vaccine (1 of 2 - Standard) 2017 Varicella Vaccines (2 of 2 - 13+ 2-dose series) 04/17/2019 03/20/2019 Regular Well Visit/Exam 18-64 01/01/2023 01/01/2022 Cervical Cancer Screening 11/18/2023 11/17/2022 Chlamydia and Gonorrhea (GC/CT) Screening 11/18/2023 11/17/2022 Covid-19 Vaccine ( season) 2024 08/14/2021, 10/04/2020, 09/06/2020 Depression Screening 03/17/2024 03/17/2023, 12/08/2022, 11/12/2022, Additional history exists Influenza Vaccine (Season Ended) 2025 04/06/2019, 04/01/2016 Hepatitis B Screening Completed 05/02/2002, 002 Pneumococcal vaccine <65 Aged Out No longer eligible based on patient's age to complete this topic Insurance [employer] Care Teams Bank Officer Relationship Specialty Start Date End Date Jordan Conteh MD [address] [place] [address] PCP - General Family Medicine 12/10/21 [place] [address] [facility] [address] [place] [address] Nurse Practitioner Behavioral Health 01/01/22
[2024-12-05] MEDS: SODIUM CHLORIDE 0.9% IV 1,000 ML 999 ML IV CONT (17:55)
[2024-12-05 17:56] LABS: BEDSIDEPREGUCG Negative (Negative)
[2024-12-05] MEDS: METOCLOPRAMIDE HCL INJ 10 MG/2 ML VIAL IV PUSH (17:57)
[2024-12-05] MEDS: diphenhydrAMINE HCl INJ 50 MG/ML VIAL 25 MG IV PUSH (17:57)
[2024-12-05] MEDS: ACETAMINOPHEN 500 MG TABLET 1000 MG PO (17:57)
[2024-12-05 18:00] LABS: INR 1.1; Partial Thromboplastin Time 34.5 Seconds (22.3-36.8); Prothrombin Time 13.9 Seconds (11.1-14.7)
[2024-12-05 18:22] LABS: Add Urine Microscopic? YES; Appearance Urine Clear (Clear); Bacteria Urine 2+ /hpf; Bilirubin Urine Negative (Negative); Blood Urine 1+ (Negative); Color Urine Yellow (Yellow); Glucose Urine UA Negative (Negative); Ketones Urine Negative (Negative); Leukocyte Esterase Ur Trace LEU/UL (Negative); Nitrate Urine Negative (Negative); Non Pathogenic Casts 0-2; Protein Urine Negative (Negative); RBC Urine 0-2 /hpf (0-2); Specific Grav Ur 1.022 (1.001-1.035); Squamous Epithelial Cell Urine Few /hpf (Few); Urobilinogen Urine 0.2 mg/dL (<2.0); WBC Urine 0-5 /hpf (0-3); pH Urine 5.5 (5.0-9.0)
[2024-12-05 19:29] VITALS: BP 132/85; PULSE 87; RESP 15; O2SAT 98
== END 2024-12-05 19:57 | disposition home or self-care (01) ==
PROVIDERS: Emergency Provider Physician Assistant
DX: R51.9 Headache, unspecified (principal); R04.0 Epistaxis; R23.3 Spontaneous ecchymoses; F41.9 Anxiety disorder, unspecified; F31.9 Bipolar disorder, unspecified
CPT/HCPCS: 36415; 70450; 80053; 81001; 81025; 84443; 85025; 85610; 85730; 96361; 96374; 96375; 99284; A9270; J1200; J2765; J7030

== ENCOUNTER 2025-04-08 12:21 | Emergency (ER) | payer OTHER, SELFPAY ==
[2025-04-08 12:32] VITALS: BP 121/89; PULSE 95; RESP 16; TEMP 36.1; O2SAT 99
--- NOTE | 2025-04-08 12:53 | ED.EXTPRO ---
HPI - Extremity Problem General Chief complaint: Extremity Problem,Nontraumatic Stated complaint: L ankle xray Time Seen by Provider: 04/08/25 12:41 Source: patient and RN notes reviewed Mode of arrival: ambulatory Limitations: no limitations History of Present Illness HPI Narrative: 24-year-old female patient presents today complaining pain to the left medial foot x2 days. Denies injury or trauma. States my heel is sinking down.States she does stay pretty active with walking but has not been walking on any uneven surfaces. States she wear supportive shoes. Rates her pain /10 has been taking Tylenol and applying ice without much improvement. Believe she may need an x-ray Related Data Home Medications ?Medication ?Instructions ?Recorded ?Confirmed ?Last Taken ?Type levonorgestrel (Mirena) 1 device intrauterine ONCE 12/15/22 01/25/24 Unknown History Vitamin D2 04/08/25 Unknown History levothyroxine 04/08/25 Unknown History lurasidone 04/08/25 Unknown History Allergies Allergy/AdvReac Type Severity Reaction Status Date / Time No Known Allergies Allergy Verified 04/08/25 12:45 [facility] Past Medical History Medical History Encounter for removal and reinsertion of intrauterine contraceptive device Psychosis Anxiety Bipolar disorder Surgical History Surgical History H/O gynecological procedure IUD insertiona Short frenulum of tongue Family History Family History Mother Thyroid cancer Social History Social History Smoking status: Never smoker Second hand tobacco smoke exposure: No Alcohol intake: never Substance use: never Substance use type: does not use Living arrangements: with family Occupation/Education: occupation Gender identity (if verbalized by the patient): Female Sexual Orientation (if Verbalized by the Patient): pansexual Comments At time of signature, I have reviewed and agree with nursing past medical, surgical, social and family history unless otherwise noted. Please see nursing chart for further information. There is no relevant family history pertinent to the presenting complaint Exam Narrative: GENERAL: Well-appearing, well-nourished, and in no acute distress. HEAD: Normocephalic, atraumatic. EYES: EOMI. No redness or drainage. Conjunctivae normal. ENT: Mucous membranes pink and moist. NECK: Normal AROM. CHEST: No respiratory distress. EXTREMITIES: Left foot: pain with weight bearing to small area to the medial arch, NTTP. No edema, erythema, ecchymosis. Nontender to the remainder of the foot and ankle. Distal sensation intact. Capillary refill normal. Pedal pulse normal. Full range of motion of the ankle. Mild pain with inversion of the foot SKIN: Warm, dry, no rash. Capillary refill normal. Normal skin turgor. NEURO: No focal deficits. Alert and oriented x3. Gait steady. PSYCH: Normal affect. No signs of depression or anxiety. Course Course Level of Care: Express Care Visit Vital Signs Vital signs: Vital Signs Temperature 96.9 F L 04/08/25 12:32 Pulse Rate 95 04/08/25 12:32 Respiratory Rate 16 04/08/25 12:32 Blood Pressure 121/89 04/08/25 12:32 Pulse Oximetry 99 04/08/25 12:32 Temperature 96.9 F L 04/08/25 12:32 Pulse Rate 95 04/08/25 12:32 Respiratory Rate 16 04/08/25 12:32 Blood Pressure 121/89 04/08/25 12:32 Pulse Oximetry 99 04/08/25 12:32 Review MDM - Extremity (Nontraumatic) MDM Narrative Medical decision making narrative: 24-year-old female patient presents today complaining pain to the left medial foot x2 days. Denies injury or trauma. States my heel is sinking down.States she does stay pretty active with walking but has not been walking on any uneven surfaces. States she wear supportive shoes. Upon exam, patient has some pain to a small area to the medial arch without any tenderness or additional abnormalities to the foot or ankle. Neurovascularly intact. As patient has not had any traumatic injury or trauma, recommend a Medrol Dosepak for possible plantar fasciitis. Patient agrees with plan. Vital signs stable. Recommend podiatry follow-up. Anticipatory guidance given. Differential Diagnosis Differential diagnosis: Likely other (Plantar fasciitis, gout, foot strain) Critical Care Time Critical Care Time Critical Care Time: No Discharge Plan Discharge Clinical Impression: Acute pain of left foot Patient Disposition: Home Condition: Stable Instructions: Plantar Fasciitis (ED) Additional Instructions: Please take the Medrol Dosepak as directed. Taking anti-inflammatories such as Aleve or ibuprofen. Continue to apply ice. Follow-up with podiatry for further evaluation. Patient Language: French Prescriptions: New methylprednisolone [Medrol (Glen)] 4 mg tablets,dose pack See Rx Instructions .ROUTE .COMPLEX Qty: 21 0RF Rx Instructions: orally per package directions No Action Vitamin D2 levothyroxine lurasidone Mirena 21 mcg/24 hours (8 yrs) 52 mg intrauterine device 1 device intrauterine ONCE Rx Instructions: as a single dose Follow-up/Referrals: Rox Ruby DPM [Physician, Podiatry] Renay Rojo DPM [Physician, Podiatry] UNKNOWN,DOCTOR [Primary Care Provider] Time of Disposition: 12:59
== END 2025-04-08 13:05 | disposition home or self-care (01) ==
PROVIDERS: Emergency Provider Nurse Practitioner
DX: M79.672 Pain in left foot (principal); F31.9 Bipolar disorder, unspecified
CPT/HCPCS: 99213; G0463